=== PATIENT | female | born 1990 | race Asian ===

== ENCOUNTER 2016-09-23 04:05 | Inpatient (IN) | payer OTHER ==
[2016-09-23] MEDS ORDERED: DEXTROSE 5%-LACTATED RINGERS 500 ML IV ONE (04:30)
[2016-09-23] MEDS ORDERED: DEXTROSE 5%-LACTATED RINGERS 1,000 ML IV SCH (05:30)
[2016-09-23] MEDS ORDERED: BUTORPHANOL TARTRATE 1 MG/ML VIAL IVPUSH ONE (05:40)
[2016-09-23 05:51] VITALS: BMI 24.1
[2016-09-23] MEDS ORDERED: WITCH HAZEL 50% (TUCKS) 40 PAD/JAR PAD TP PRN (07:22)
[2016-09-23] MEDS ORDERED: METHYLERGONOVINE MALEATE 0.2 MG/1 ML AMP IM PRN (07:22)
[2016-09-23] MEDS ORDERED: BISACODYL 10 MG SUPP.RECT RC PRN (07:22)
[2016-09-23] MEDS ORDERED: BENZOCAINE 28 GM HEMORRHOIDAL OINTMENT TP PRN (07:22)
[2016-09-23] MEDS ORDERED: BENZOCAINE 20% 57 GM BOTTLE TP PRN (07:22)
--- NOTE | 2016-09-23 07:24 | PN ---
Delivery - Delivery Vaginal Delivery: No Problems Type of Anesthesia: Local Episiotomy/Laceration: Midline EBL (cc): 300 (delivered in OA position without complications) Delivery, Single - Stages of Labor Placenta: Yes: Spontaneous - Condition of Infant Infant Gender: Female - Feeding Plan Initial Plan: Elected not to breastfeed exclusively throughout hospitalization
[2016-09-23] MEDS ORDERED: D5W-LR W/ 20 UNITS OXYTOCIN 1,000 ML IV SCH (07:30)
--- NOTE | 2016-09-23 07:33 | HP ---
Past Medical History - Admission Chief Complaint: Labor pain History of Present Illness: 26 yo , @ 38 weeks gestation admitted for labor pain. She denies any vaginal bleeding nor rupture of membrane. History Source: Patient Limitations to Obtaining History: No Limitations - Past Medical History ...: 1 ...Para: 0 ...Term: 0 ...: 0 ...Spon : 0 ...Induced : 0 ...Multiple Gestation: 0 ...EDC by [facility]: 10/02/16 - Past Surgical History Past Surgical History: Yes: None Hx Myomectomy: No Hx Transabdominal Cerclage: No - Smoking History Smoking history: Unknown if ever smoked Have you smoked in the past 12 months: No - Alcohol/Substance Use Hx Alcohol Use: No History of Substance Use: reports: None - Social History Usual Living Arrangement: Yes: With Spouse History of Recent Travel: No Home Medications - Allergies Allergies/Adverse Reactions: Allergies Allergy/AdvReac Type Severity Reaction Status Date / Time No Known Allergies Allergy Verified 09/23/16 05:28 - Home Medications Home Medications: Ambulatory Orders Vit/Iron Fumarate/FA [ Tablet] 1 tab PO DAILY 09/23/16 Family Disease History - Family Disease History Family History: Unremarkable Review of Systems - Review of Systems Constitutional: reports: No Symptoms Eyes: reports: No Symptoms HENT: reports: No Symptoms Neck: reports: No Symptoms Cardiovascular: reports: No Symptoms Respiratory: reports: No Symptoms Gastrointestinal: reports: No Symptoms Genitourinary: reports: Pain Breasts: reports: No Symptoms Reported Musculoskeletal: reports: No Symptoms Integumentary: reports: No Symptoms Neurological: reports: No Symptoms Endocrine: reports: No Symptoms Psychiatric: reports: No Symptoms Pain Intensity: 6 Physical Exam - Maternity Vital Signs: Vital Signs Temperature 97.8 F 09/23/16 06:00 Pulse Rate 66 09/23/16 06:00 Respiratory Rate 20 09/23/16 06:00 Blood Pressure 122/81 09/23/16 06:00 O2 Sat by Pulse Oximetry (%) Constitutional: Yes: Well Nourished Eyes: Yes: Conjunctiva Clear HENT: Yes: Atraumatic Neck: Yes: Supple, Trachea Midline Cardiovascular: Yes: Regular Rate and Rhythm Lungs: Clear to auscultation - Abdominal Exam/OB Number of Fetuses: Single Presentation: Vertex Contractions: Yes Regularity: Irregular - Vaginal Exam/OB Vaginal Bleediing: No Speculum Exam: No Dilatation (cm): 4 Effacement (%): 80 Amniotic Membrane Status: Intact Station: -2 - Physical Exam Musculoskeletal: Yes: WNL Extremities: Yes: WNL Integumentary: Yes: WNL ...Motor Strength: WNL Psychiatric: Yes: Alert, Oriented Problem List - Problems (1) Status post normal vaginal delivery Code(s): DPT0534 - Assessment/Plan Active Labor Admit to L&D Analgesia PRN pain Anticipate
[2016-09-23 07:40] LABS: ARTERIAL BLOOD GAS BASE EXCESS -2.4 meq/l (-2-2); ARTERIAL BLOOD GAS HCO3 25.8 meq/L (22-26); ARTERIAL BLOOD GAS PO2 18.8 mmHg (80-100); ARTERIAL BLOOD GAS pH 7.25 (7.35-7.45)
[2016-09-23 07:44] LABS: VENOUS BLOOD GAS HCO3 23.6 meq/L (19-25); VENOUS PH 7.33 (7.32-7.42)
[2016-09-23 08:30] LABS: MCH 30.1 pg (25.7-33.7); MCHC 33.5 g/dl (32.0-36.0); MEAN CELL VOLUME 89.9 fl (80-96); MEAN PLT VOLUME 8.3 fl (7.5-11.1); PLATELET COUNT 215 K/MM3 (134-434); WHITE BLOOD COUNT 21.2 K/mm3 (4.0-10.0)
[2016-09-23 08:50] LABS: ALBUMIN 2.7 g/dl (3.4-5.0); ALK PHOS 210 U/L (45-117); ANION GAP 11 (8-16); BILIRUBIN,TOTAL 0.3 mg/dL (0.2-1.0); CALCIUM 8.4 mg/dL (8.5-10.1); CO2 23 mmol/L (21-32); CREATININE 0.5 mg/dL (0.55-1.02); GLUCOSE,RANDOM 95 mg/dL (74-106); SGOT/AST 23 U/L (15-37); SGPT/ALT 22 U/L (12-78); TOT PROT 6.6 g/dl (6.4-8.2)
[2016-09-23 08:54] LABS: INR 0.95 (0.82-1.09); PROTHROMBIN TIME (PATIENT) 10.4 SEC (9.98-11.88)
[2016-09-23 08:57] LABS: ACTIVATED PTT 25.1 SECONDS (26.9-34.4)
[2016-09-23] MEDS ORDERED: TUBERCULIN PPD 5 TU/0.1ML SYRINGE (IN PATIENT USE ONLY) ID ONE ×2 (09:00→10:15)
[2016-09-23] MEDS: ACETAMINOPHEN 325 MG TABLET (FP) PO PRN ×2 (09:40→20:40)
[2016-09-23] MEDS: IBUPROFEN 600 MG TABLET (FP) PO PRN ×2 (09:41→20:40)
[2016-09-23 10:27] LABS: HIV 1 & 2 AB NEGATIVE; HIV 1 AGp24 NEGATIVE
[2016-09-23 11:42] LABS: PLATELET ESTIMATE ADEQUATE (NORMAL)
[2016-09-23 11:43] LABS: HYPOCHROMIA 3+
[2016-09-23 14:56] LABS: URINE APPEARANCE CLEAR; URINE BILIRUBIN NEGATIVE (NEGATIVE); URINE COLOR LTYELLOW; URINE GLUCOSE (UA) 1+ (NEGATIVE); URINE KETONE NEGATIVE (NEGATIVE); URINE NITRITE NEGATIVE (NEGATIVE); URINE UROBILINOGEN NEGATIVE E.U./dl (0.2-1.0)
[2016-09-23 15:00] LABS: URINE BLOOD 3+ (NEGATIVE); URINE LEUK ESTERASE TRACE (NEGATIVE); URINE PROTEIN 1+ (NEGATIVE)
[2016-09-23 15:05] LABS: URINE MUCUS RARE; URINE RBC 809 /hpf (0-3); URINE WBC 13 /hpf (3-5)
[2016-09-24 07:21] LABS: BASOPHIL 0.4 % (0-2.0); MCH 30.2 pg (25.7-33.7); MCHC 33.3 g/dl (32.0-36.0); MEAN CELL VOLUME 90.6 fl (80-96); MEAN PLT VOLUME 8.3 fl (7.5-11.1); NEUTROPHILS 79.6 % (42.8-82.8); PLATELET COUNT 184 K/MM3 (134-434)
[2016-09-24] MEDS: ACETAMINOPHEN 325 MG TABLET (FP) PO PRN (08:59)
[2016-09-24] MEDS: IBUPROFEN 600 MG TABLET (FP) PO PRN (08:59)
--- NOTE | 2016-09-24 09:22 | PN ---
Post Progress Note - Subjective Subjective: Pt seen/evaluated and doing well. Pain controlled. Tolerating diet. Ambulating, voiding, passing flatus. VB moderate and decreasing. Denies Cp/SOB/ F/C/OSHEA. Type of Delivery: Vital Signs: Vital Signs Temperature 97.5 F L 09/24/16 06:00 Pulse Rate 79 09/24/16 06:00 Respiratory Rate 18 09/24/16 06:00 Blood Pressure 102/73 09/24/16 06:00 O2 Sat by Pulse Oximetry (%) 100 09/23/16 08:00 Uterus: Yes: Fundus Firm, Fundus below umbilicus, Non-tender Abdomen/GI: Yes: Abdomen soft, Passing flatus, Tolerating PO. No: Abdominal Distention, Tender Lochia: Yes: Rubra Lochia, amount: Small Extremities: Yes: Calves non-tender. No: Edema Activity: Ambulating - Labs Labs: CBC WBC 22.0 K/mm3 (4.0-10.0) H 09/24/16 06:15 RBC 3.94 M/mm3 (3.60-5.2) 09/24/16 06:15 Hgb 11.9 GM/dL (10.7-15.3) 09/24/16 06:15 Hct 35.7 % (32.4-45.2) 09/24/16 06:15 MCV 90.6 fl (80-96) 09/24/16 06:15 MCHC 33.3 g/dl (32.0-36.0) 09/24/16 06:15 RDW 14.0 % (11.6-15.6) 09/24/16 06:15 Plt Count 184 K/MM3 (134-434) 09/24/16 06:15 MPV 8.3 fl (7.5-11.1) 09/24/16 06:15 Neutrophils % 79.6 % (42.8-82.8) 09/24/16 06:15 Lymphocytes % 12.4 % (8-40) D 09/24/16 06:15 Monocytes % 6.6 % (3.8-10.2) D 09/24/16 06:15 Eosinophils % 1.0 % (0-4.5) 09/24/16 06:15 Basophils % 0.4 % (0-2.0) 09/24/16 06:15 Band Neutrophils 1.0 % (0-10) 09/23/16 07:45 Differential Comment Manual diff done 09/23/16 07:45 Platelet Estimate Adequate (NORMAL) 09/23/16 07:45 Hypochromic-Microcytic 3+ 09/23/16 07:45 Morphology Comment Slide scanned 09/23/16 07:45 Problem List - Problems (1) Vaginal delivery Code(s): O80 - ENCOUNTER FOR FULL-TERM UNCOMPLICATED DELIVERY Assessment/Plan 26 y/o PPD#1 s/p normal - AFVSS - Hgb 11.9 post delivery - regular diet, PO pain meds - routine care
[2016-09-24] MEDS ORDERED: DIPHTH,PERTUSS(ACELL),TET 0.5 ML DISP.SYRIN IM ONE (10:00)
[2016-09-24 12:23] VITALS: BP 116/63; PULSE 73; TEMP 98.6
--- NOTE | 2016-09-24 13:36 | DS ---
Physical Exam-CARE TEAM ASSISTANT Vital Signs: Vital Signs Temperature 98.6 F 09/24/16 10:00 Pulse Rate 73 09/24/16 10:00 Respiratory Rate 20 09/24/16 10:00 Blood Pressure 116/63 09/24/16 10:00 O2 Sat by Pulse Oximetry (%) 100 09/23/16 08:00 Constitutional: Yes: Well Nourished Eyes: Yes: Conjunctiva Clear HENT: Yes: Atraumatic Neck: Yes: Supple, Trachea Midline Cardiovascular: Yes: Regular Rate and Rhythm Respiratory: Yes: Regular, CTA Bilaterally Gastrointestinal: Yes: Normal Bowel Sounds Vaginal Exam: Yes: Normal Cervix: Yes: Normal Uterus: Yes: Firm ....Post : Yes: Uterus firm, Moderate lochia rubra Neurological: Yes: Alert, Oriented ...Motor Strength: WNL Psychiatric: Yes: Alert, Oriented Labs: CBC, BMP 09/24/16 06:15 09/23/16 07:45 Delivery - Delivery Vaginal Delivery: No Problems Type of Anesthesia: Local Episiotomy/Laceration: Midline EBL (cc): 300 Delivery, Single - Stages of Labor Date 1st Stage Initiatied: 09/23/16 Time 1st Stage Initiated: 00:30 Date 2nd Stage Initiated: 09/23/16 Time 2nd Stage Initiated: 07:05 Date of Delivery: 09/23/16 Time of Delivery: 07:11 Time Placenta Delivered: 07:14 Placenta: Yes: Spontaneous - Condition of Wash Tank Tender/Care Team Assistant Present: No Infant Gender: Male Weight: 6 lb 2 oz Position: OA Total Hours ROM (Hrs/Mins): 34 - 1 Minute Total Score: 9 5 Minutes Total Score: 9 - Feeding Plan Initial Plan: Elected not to breastfeed exclusively throughout hospitalization Discharge Summary Reason For Visit: LABOR Current Active Problems Status post normal vaginal delivery (Acute) Vaginal delivery (Acute) Procedures: Principal: Normal spontaneous vaginal delivery Hospital Course: Routine care Condition: Good - Instructions Diet, Activity, Other Instructions: Regular diet No sexual intercourse, no douching x 6 weeks. Referrals: Vonnie Goncalves MD [Family Provider] - Disposition: HOME - Home Medications Comprehensive Discharge Medication List: Ambulatory Orders Vit/Iron Fumarate/FA [ Tablet] 1 tab PO DAILY 09/23/16
[2016-09-24] MEDS ORDERED: SENNOSIDES/DOCUSATE COMBO (SENNA PLUS) TABLET (UD) PO PRN (22:00)
== END 2016-09-24 14:30 | disposition home or self-care (01) | DRG 560 ==
LOC: JDEL 04:05 → JLDR 04:30 → J3W 08:50
PROVIDERS: ADMIT Obstetrics & Gynecology; ATTEND Obstetrics & Gynecology
PROC: 10E0XZZ Delivery of Products of Conception, External Approach (ICD-10-PCS; principal; 2016-09-23)
PROC: 0W8NXZZ Division of Female Perineum, External Approach (ICD-10-PCS; 2016-09-23)
DX: O80 Encounter for full-term uncomplicated delivery (principal); Z3A.38 38 weeks gestation of pregnancy; Z37.0 Single live birth
CPT/HCPCS: 36415; 36600; 59409; 80053; 81003; 81015; 82803; 85025; 85610; 85730; 86593; 86762; 86850; 86900; 86901; 87340; 87389; 90715

== ENCOUNTER 2023-06-19 22:14 | Emergency (ER) | payer OTHER ==
[2023-06-19 22:19] VITALS: TEMP 98.3; BMI 26.2
[2023-06-19] MEDS ORDERED: ACETAMINOPHEN 1000 MG/100 ML BAG IVPB ONE (22:53)
[2023-06-19] MEDS ORDERED: ACETAMINOPHEN INJECTION 100 ML IVPB ONE (22:56)
[2023-06-19 23:55] LABS: BASO % 0.5 % (0-2.0); EOS % 1.1 % (0-4.5); HEMATOCRIT 36.1 % (32.4-45.2); LYMPH % 21.1 % (8-40); MCH 29.2 pg (25.7-33.7); MCHC 33.3 g/dl (32.0-36.0); MEAN CELL VOLUME 87.8 fl (80-96); MEAN PLT VOLUME 8.3 fl (7.5-11.1); MONO % 6.1 % (3.8-10.2); NEUT % 71.2 % (42.8-82.8); PLATELET COUNT 252 10^3/uL (134-434); RBC 4.11 M/mm3 (3.60-5.2); RDW 14.2 % (11.6-15.6); URINE APPEARANCE CLEAR; URINE BILIRUBIN NEGATIVE (NEGATIVE); URINE COLOR YELLOW; URINE GLUCOSE (UA) NEGATIVE (NEGATIVE); URINE KETONE NEGATIVE (NEGATIVE); URINE LEUK ESTERASE NEGATIVE (NEGATIVE); URINE NITRITE NEGATIVE (NEGATIVE); URINE PROTEIN NEGATIVE (NEGATIVE); URINE UROBILINOGEN 0.2 mg/dL (0.2-1.0); WHITE BLOOD COUNT 15.4 K/mm3 (4.0-10.0)
[2023-06-20] MEDS ORDERED: LACTATED RINGERS SOLUTION 1000 ML INFUS.BAG IV ONE (00:15)
[2023-06-20 00:16] LABS: POTASSIUM 4.3 mmol/L (3.5-5.1)
[2023-06-20 00:18] LABS: CALCIUM 9.2 mg/dL (8.5-10.1)
[2023-06-20 00:21] LABS: CREATININE 0.5 mg/dL (0.55-1.3)
[2023-06-20 00:22] LABS: BILIRUBIN,TOTAL 0.2 mg/dL (0.2-1); TOT PROT 6.8 g/dl (6.4-8.2)
[2023-06-20 01:35] VITALS: BP 101/69; PULSE 85; RESP 18
== END 2023-06-20 01:43 | disposition home or self-care (01) ==
LOC: JER 22:14
PROC: 3E033NZ Introduction of Analgesics, Hypnotics, Sedatives into Peripheral Vein, Percutaneous Approach (ICD-10-PCS; principal; 2023-06-19)
DX: O23.592 Infection of other part of genital tract in pregnancy, second trimester (principal); B37.9 Candidiasis, unspecified; O26.892 Other specified pregnancy related conditions, second trimester; R10.32 Left lower quadrant pain; R11.0 Nausea; R50.9 Fever, unspecified; M79.10 Myalgia, unspecified site; Z3A.16 16 weeks gestation of pregnancy; Z20.822 Contact with and (suspected) exposure to COVID-19
CPT/HCPCS: 0241U-QW; 36415; 76815-TC; 80053; 81003; 84702; 85025; 87086; 99284-25